=== PATIENT | female | born 1980 | race Caucasian/White ===

== ENCOUNTER 2016-05-22 21:07 | Inpatient (IN) | payer MEDICARE, MEDICAID ==
[~2016-05-22] VITALS: Ht 165.1 cm; Wt 78.4 kg
[2016-05-22] MEDS ORDERED: LORazepam 2 MG/ML VIAL IM ONE (22:00)
[2016-05-22] MEDS ORDERED: HALOPERIDOL LACTATE 5 MG/ML VIAL IM ONE (22:00)
[2016-05-22] MEDS ORDERED: DiphenhydrAMINE HCL 50 MG/ML VIAL IM ONE (22:00)
[2016-05-22] MEDS ORDERED: ZOLPIDEM TARTRATE 10 MG TABLET PO PRN (22:15)
[2016-05-22 22:16] LABS: HEMOGLOBIN 14.9 g/dL (12.0-16.0)
[2016-05-22 22:25] LABS: BASOPHILS # (AUTO) 0.08 K/uL (0.00-0.20); BASOPHILS % (AUTO) 0.6 % (0.0-2.0); EOSINOPHILS # (AUTO) 0.45 K/uL (0.00-0.70); EOSINOPHILS % (AUTO) 3.66 % (1.0-6.0); HEMATOCRIT 44.1 % (36-46); LYMPHOCYTES # (AUTO) 3.9 K/uL (1.0-4.8); LYMPHOCYTES % (AUTO) 31.6 % (22.0-44.0); MEAN CORPUSCULAR HEMOGLOBIN 30.2 pg (26.0-34.0); MEAN CORPUSCULAR HGB CONC 33.7 G/dL (31.0-37.0); MEAN CORPUSCULAR VOLUME 90 fL (80-100); MONOCYTES # (AUTO) 0.9 K/uL (0.1-1.0); MONOCYTES % (AUTO) 7.1 % (2.0-9.0); NEUTROPHILS % (AUTO) 57.1 % (40.0-70.0); PLATELET COUNT (AUTO) 358 K/uL (150-450); RED BLOOD CELL COUNT(AUTO) 4.93 MIL/uL (4.00-5.20); RED CELL DISTRIBUTION WIDTH 13.8 % (11.5-14.5); WHITE BLOOD COUNT (AUTO) 12.3 K/uL (4.5-11.0)
[2016-05-22 22:30] LABS: ALANINE AMINOTRANSFERASE 19 U/L (12-78); ANION GAP 9 mmol/L (8-16); ASPARTATE AMINOTRANSFERASE 21 U/L (15-37); BILIRUBIN,TOTAL 0.8 mg/dL (0.1-1.0); CALCIUM, TOTAL 9.1 mg/dL (8.8-10.5); CARBON DIOXIDE 29 mmol/L (22-29); CHLORIDE 102 mmol/L (98-107); CREATININE 0.75 mg/dL (0.60-1.30); GLOMERULAR FILTR. RATE CALC > 60 mL/min (>60); POTASSIUM 3.8 mmol/L (3.5-5.1); SODIUM SERUM 140 mmol/L (136-145); TOTAL PROTEIN, SERUM 7.3 g/dL (6.4-8.2)
[2016-05-22 22:39] LABS: UREA NITROGEN, BLOOD 15 mg/dL (7-18)
[2016-05-23] MEDS ORDERED: INFLUENZA VIRUS VACCINE QVS 2016-17 (3YR+)/PF 60 MCG/0.5 ML SYRINGE IM ONE (17:15)
[2016-05-24 10:12] VITALS: BP 109/67
[2016-05-24] MEDS ORDERED: IBUPROFEN 400 MG TABLET PO PRN (10:30)
[2016-05-24] MEDS ORDERED: ACETAMINOPHEN 325 MG TABLET PO PRN (10:30)
[2016-05-24] MEDS: RisperiDONE 2 MG TABLET PO SCH (17:51)
[2016-05-25] MEDS: RisperiDONE 2 MG TABLET PO SCH ×2 (08:49→16:34)
[2016-05-25] MEDS ORDERED: COLLOIDAL OATMEAL PACKET TP PRN (17:30)
[2016-05-26] MEDS: RisperiDONE 2 MG TABLET PO SCH ×2 (08:59→16:03)
[2016-05-26 16:00] VITALS: BP 105/67
[2016-05-26] MEDS: LORazepam 2 MG TABLET PO PRN (16:03)
[2016-05-26] MEDS: HALOPERIDOL 5 MG TABLET PO PRN (17:36)
[2016-05-27] MEDS: RisperiDONE 2 MG TABLET PO SCH ×2 (08:52→18:14)
[2016-05-28] MEDS: HALOPERIDOL 5 MG TABLET PO PRN (07:29)
[2016-05-28] MEDS: LORazepam 2 MG TABLET PO PRN (07:29)
[2016-05-28 08:00] VITALS: BP 106/73
[2016-05-28] MEDS: RisperiDONE 2 MG TABLET PO SCH ×2 (09:35→16:04)
[2016-05-28] MEDS: NICOTINE 21 MG/24 HOUR PATCH TD SCH (11:26)
[2016-05-28 16:28] VITALS: BP 121/74
[2016-05-29] MEDS: LORazepam 2 MG TABLET PO PRN (07:39)
[2016-05-29] MEDS: HALOPERIDOL 5 MG TABLET PO PRN (07:39)
[2016-05-29] MEDS: RisperiDONE 2 MG TABLET PO SCH ×2 (08:43→16:34)
[2016-05-29] MEDS: NICOTINE 21 MG/24 HOUR PATCH TD SCH (09:00)
[2016-05-29 17:09] VITALS: BP 98/73
[2016-05-30] MEDS: RisperiDONE 2 MG TABLET PO SCH ×2 (08:03→16:20)
[2016-05-30] MEDS: NICOTINE 21 MG/24 HOUR PATCH TD SCH (08:03)
[2016-05-30] MEDS: HALOPERIDOL 5 MG TABLET PO PRN (12:45)
[2016-05-30] MEDS: LORazepam 2 MG TABLET PO PRN ×2 (12:45→14:52)
[2016-05-31] MEDS: HALOPERIDOL 5 MG TABLET PO PRN (07:46)
[2016-05-31] MEDS: LORazepam 2 MG TABLET PO PRN (07:46)
[2016-05-31] MEDS: RisperiDONE 2 MG TABLET PO SCH ×2 (07:46→16:51)
[2016-05-31] MEDS: NICOTINE 21 MG/24 HOUR PATCH TD SCH (07:47)
[2016-05-31 08:00] VITALS: BP 104/57
[2016-05-31 16:25] VITALS: BP 130/78
[2016-06-01] MEDS: RisperiDONE 2 MG TABLET PO SCH (08:40)
[2016-06-01] MEDS: NICOTINE 21 MG/24 HOUR PATCH TD SCH (09:00)
[2016-06-01] MEDS ORDERED: RISP2 PO (11:05)
== END 2016-06-01 14:40 | disposition home or self-care (01) | DRG 885 ==
LOC: EMS 21:14 → 3EC 05-23 14:50
PROVIDERS: ADMIT Psychiatry & Neurology Psychiatry; ATTEND Psychiatry & Neurology Psychiatry
DX: F25.0 Schizoaffective disorder, bipolar type (principal); F15.10 Other stimulant abuse, uncomplicated; D72.829 Elevated white blood cell count, unspecified; Z59.0 Homelessness; Z71.51 Drug abuse counseling and surveillance of drug abuser; Z91.14 Patient's other noncompliance with medication regimen; Z28.21 Immunization not carried out because of patient refusal
CPT/HCPCS: 96372; 99291; G0480; J1200; J1630; J2060

== ENCOUNTER 2017-05-21 20:00 | Emergency (ER) | payer OTHER ==
[~2017-05-21] VITALS: Ht 162.6 cm; Wt 77.0 kg
[~2017-05-21 20:00] MED LIST: RISP2 PO
[2017-05-21 21:36] LABS: AMPHET/METH SCREEN,URINE NEGATIVE (NEGATIVE); BARBITURATE SCREEN, URINE NEGATIVE (NEGATIVE); BENZODIAZEPINES SCREEN,URINE NEGATIVE (NEGATIVE); CANNABINOID SCREEN,URINE NEGATIVE (NEGATIVE); COCAINE SCREEN,URINE NEGATIVE (NEGATIVE); METHADONE SCREEN, URINE NEGATIVE (NEGATIVE); OPIATE SCREEN,URINE NEGATIVE (NEGATIVE)
[2017-05-21 21:37] LABS: PHENCYCLIDINE SCREEN,URINE NEGATIVE (NEGATIVE)
[2017-05-21 22:01] VITALS: BP 134/78
== END 2017-05-21 22:01 | disposition home or self-care (01) ==
LOC: EMS 20:01
DX: F29 Unspecified psychosis not due to a substance or known physiological condition (principal); Z59.0 Homelessness; F17.210 Nicotine dependence, cigarettes, uncomplicated; F15.10 Other stimulant abuse, uncomplicated; Z79.899 Other long term (current) drug therapy
CPT/HCPCS: 99285